=== PATIENT | male | born 1965 | race Caucasian/White ===

== ENCOUNTER 2024-11-11 11:08 | Emergency (ER) | payer BC | END 2024-11-11 12:37 | disposition home or self-care (01) | LOC: DL.ED 11:08 | DX: S80.861A Insect bite (nonvenomous), right lower leg, initial encounter (principal); W57.XXXA Bitten or stung by nonvenomous insect and other nonvenomous arthropods, initial encounter | CPT/HCPCS: 99282; A9270 ==